=== PATIENT | male | born 1955 | race Caucasian/White ===

== ENCOUNTER 2016-11-28 10:06 | Inpatient (IN) | payer OTHER ==
[~2016-11-28] VITALS: Ht 177.8 cm; Wt 111.6 kg
--- NOTE | ~2016-11-28 | CON ---
[place], [place] REPORT OF CONSULTATION NAME: PAIGE SANDRA [facility] #: [id number] UNIT #: [id number] ROOM: 424 DOCTOR: ADOLFO LEON MD,MARIAMA BIRTHDATE: [birth year] DOS: 11/29/2016 REASON FOR CONSULTATION: Assess the patient for the lung mass with ongoing acute respiratory symptoms. HISTORY OF PRESENT ILLNESS: This is a 61-year-old white male who has been well known to me. The patient has been recently hospitalized in October 2016, treated for acute pneumonia with exacerbation of COPD. The patient discharged home and followed up in the office because of the suspected pneumonia/mass or atelectasis of the right middle lobe. The patient underwent CT scan of the chest that confirmed the presence of a right hilar mass 4.2 x 3.2 cm with subsegmental area of atelectasis and other 7 mm nodule. The patient has been scheduled the outpatient bronchoscopy which was planned to be done this morning. He has been noted with significant weakness. The patient went to work. He was sent to the Emergency Room for further assessment. He does have symptoms of coughing intermittently with symptoms of shortness breath. There were no symptoms of chest pain. The patient has been assessed in the Emergency Room and was hospitalized for the acute exacerbation of COPD. The patient denies any symptoms of hemoptysis. He does complain of some pain, which was described in the right side of the chest at times. The pain was described mild mostly. He was also described symptoms of palpitations. REVIEW OF SYSTEMS: CONSTITUTIONAL: Fatigue and tiredness noted without symptoms of fever or chills. EYES: Denies burning, redness, or tenderness. EARS, NOSE, THROAT SYMPTOMS: No sore throat, hoarseness, or otalgia. Postnasal drainage. CARDIOVASCULAR: Denies anginal pain noted palpitations intermittently. Denies symptoms of syncopal episodes. GASTROINTESTINAL SYMPTOMS: Denies nausea, vomiting, diarrhea, abdominal pain, hematemesis, melena, or hematochezia. GENITOURINARY SYMPTOMS: Denies dysuria, suprapubic pain, or hematuria. MUSCULOSKELETAL: Denies any acute joint pain, redness, or tenderness. SKIN: No lesions or rashes. CENTRAL NERVOUS SYSTEM: Lightheadedness described with symptoms of fever or chills. Remaining systems were reviewed with the patient, they were noted all negative. PAST MEDICAL HISTORY: 1. History of centrilobular emphysema. 2. History of chronic hypoxic respiratory failure, 3 litre oxygen use. 3. Anxiety disorder. 4. Type 2 diabetes mellitus. 5. Diverticulosis. 6. Essential hypertension. 7. Superficial gardner on the face. 8. ____ myocardial infarction. 9. Obstructive sleep apnea disorder. 10. Right perihilar mass for this patient with subsegmental atelectasis in size [place], [place] REPORT OF CONSULTATION NAME: PAIGE SANDRA UNIT #: [id number] ROOM: 424 DOCTOR: ADOLFO LEON MD,MARIAMA BIRTHDATE: [birth year] of 4.2 x 3.2 cm, which was diagnosed on 11/06/2016. PAST SURGICAL HISTORY: 1. Abdominal aortic aneurysm. 2. Cardiac catheterization. 3. ____ cataract extraction with lens implantation. 4. Fiberoptic bronchoscopy in 2009. 5. T and A. 6. Partial colon resection for diverticulosis management. SOCIAL HISTORY: The patient lives at home, works in the [employer] for many years. Smoking was noted since teenager 2 packs of cigarettes per day until 2012. Denies history of alcohol or any illicit drug use. FAMILY HISTORY: The patient has been noticed history of coronary artery disease and lung cancer in the father and history of lung cancer, was also known in the mother. MEDICATIONS: Current administered medications for the patient were noted as use of Lovenox for DVT prophylaxis, Levaquin, Zosyn, vancomycin, Restoril and other p.r.n. medications administration. DRUG ALLERGIES: Noted for allergy to VICODIN. PHYSICAL EXAMINATION: GENERAL: This is a 61-year-old white male who has been currently noted awake and alert without any acute distress. VITAL SIGNS: Height for this patient was noted as 5 feet 11 inches. The weight was noted as 246 pounds. The BMI 35.3. Vital signs for the patient, which has been recorded showed the temperature noted normal, respiratory rate 20-24, heart rate of 96-104, blood pressure 122/70-110/56. Intake is ____. Pulse ox saturation on 3 liters cannula. The patient noted 91% saturation. Room air on admission was 88% saturation. HEENT: Moderate obesity. Head was atraumatic. Eyes nonicterus. Oral mucosa moist. Decreased posterior pharyngeal space. CARDIOVASCULAR: S1, S2 audible. LUNGS: For this patient was noted without any crackles. Breaths are noted mildly decreased bilaterally. Scattered wheezing. ABDOMEN: Soft with obesity. Bowel sounds present. EXTREMITIES: Shows no edema, clubbing or cyanosis. LABORATORY DATA: The patient's CBC for patient that were done yesterday in the Emergency Room, the patient's WBC count 14.4, hemoglobin 10, hematocrit 32.7, platelet count 449,000. BMP of patient's BUN and creatinine was normal. Calcium was noted normal as well. PT and PTT were noted as normal yesterday. CBC this morning, WBC count 12.8, hemoglobin 10.3, hematocrit 34.3, platelet count 540,000. BMP this morning, glucose 157, BUN and creatinine was normal. Calcium was normal. TSH decreased 0.187. [place], [place] REPORT OF CONSULTATION NAME: PAIGE SANDRA UNIT #: [id number] ROOM: [facility] DOCTOR: KALEIGH WALL MDM BIRTHDATE: [birth year] IMAGING DATA: Chest x-ray of the patient 1 view, the patient that was done for the patient on 04/28/2016 was reviewed, shows persistent mass lesion for this patient with area of atelectasis in the right lower lobe. IMPRESSION: 1. The patient who has been currently admitted to the hospital with findings consistent with chronic hypoxic respiratory failure with possibly postobstructive pneumonia suspected malignancy, right lower lobe. 2. History of obstructive sleep apnea disorder, chronic obesity. 3. Family history of lung cancer was noted in both parents who from complications of lung cancer. 4. History of coronary artery disease and other medical illnesses. PLAN OF TREATMENT: At this time, the patient has been getting three different antibiotics, which would get coverage for health care associated infection, gram-positive, gram-negative organism. The pneumonia would be considered mostly postobstructive if it is rather than any aspiration pneumonia. Bronchoscopy was planned to be done this morning, patient was noted n.p.o. past midnight for the procedure was planned to be done this morning. Continue bronchodilators resume his home medications as well accordingly. Ordered the supportive therapy, plan of management. Usual care. Others as supportive treatment, plan of care as in progress. MARIAMA MATA MD CM:CONSTR:REPORT OF CONSULTATION 1429 11/29/16 2316 interface
--- NOTE | ~2016-11-28 | PROC NOTE ---
[place], [place] PROCEDURE NOTE NAME: PAIGE SANDRA [facility] #: [id number] UNIT #: [id number] ROOM: 424 DOCTOR: ADOLFO LEON MD,MARIAMA BIRTHDATE: [birth year] DOS: 11/29/2016 BRONCHOSCOPY NOTE PROCEDURE: Transbronchial and endobronchial biopsy for the patient of right lower lobe. PREOPERATIVE DIAGNOSIS: Right lower lobe mass. POSTOPERATIVE DIAGNOSES: Endobronchial mass lesion of the patient with almost complete occlusion of the right lower lobe bronchus. COMPLICATIONS: None. BLOOD LOSS: Couple of mL. PROCEDURE DESCRIPTION: Informed consent obtained for the patient. The patient brought to the OR and placed in supine position. Conscious sedation was administered by the Anesthesia Department. After achieving appropriate sedation, airway introduced into the mouth. Bronchoscope advanced into the airway into laryngeal area. Epiglottis and vocal cords were seen. Bronchoscope advanced to the vocal cords into the tracheal lumen. The tracheal lumen was noted with small purulent secretions, suctioned out to the herson level. The herson was seen. Left upper, lingular lower lobe bronchial openings were noted patent. The right main stem bronchus was noted filled with presence of mucopurulent material which were cleared out. Right upper and right middle lobe openings were identified. Compression of the right middle lobe bronchus was noted, but the bronchial openings were noted patent. Large endobronchial lesion noted in the right lower lobe bronchial openings. The biopsy was done for the patient of the endobronchial mass as well as 1 transbronchial biopsy was also taken. Procedure was well tolerated by the patient without any complications except bleeding was noted, only a couple of mL. 1:10,000 epinephrine mixed with saline was also sprayed on that area to prevent any bleeding. Hemostasis was achieved for this patient prior to withdrawal of the bronchoscope. Procedure well tolerated. Postoperative findings were discussed with the patient's family members in detail. MARIAMA MATA MD CM:PROCNOTE:PROCEDURE NOTE [id number] MARIAMA LEON MD
--- NOTE | ~2016-11-28 | PR ---
[place], [place] PROGRESS NOTE NAME: PAIGE SANDRA [facility] #: [id number] UNIT #: [id number] ROOM: 424 DOCTOR: ADOLFO LEON MD,MARIAMA BIRTHDATE: [birth year] DOS: 11/30/2016 PULMONARY FOLLOWUP NOTE SUBJECTIVE: The patient seen and examined on 11/30/2016. He has been noted comfortable with reduction of the cough at this time. Denies symptoms of chest pain. Shortness of breath has been improving. The patient denies symptoms of abdominal pain. The bronchoscopy done yesterday with biopsies of the right lower lobe lung mass was completed without any difficulty. OBJECTIVE: VITAL SIGNS: Normal temperature, respiratory rate 18, heart rate 71, blood pressure 132/86. Pulse oxygen saturation was noted as 97% on nasal cannula. HEENT: Examination shows no acute change. NECK: Supple. CARDIOVASCULAR: S1, S2 is audible. LUNGS: Examination of lungs for this patient was noted without any wheeze or crackles. ABDOMEN: Soft, nontender. IMPRESSION: The patient with acute tracheobronchitis of the patient was noted for the patient possibility of postobstructive pneumonia, suspected malignancy of the patient, metastasis to the liver for this patient endobronchial and transbronchial biopsy of the right lower lung mass with pending results. Cytology was described as benign, but suboptimal because of the large amount of wbc's noted. PLAN OF TREATMENT: Continuation of the current plan of therapy, other medical management. Monitor results of the biopsy. Continue current antibiotics. Changes in the antibiotics based on the cultures. Usual care, other supportive therapy, plan of management and care. MARIAMA MATA MD CM:PNTRANS [id number] MARIAMA LEON MD 11/30/16 1807 interface
[~2016-11-28 10:06] MED LIST: ASPIRIN81 M1 PO; BENADRYL50 MG PO; CIPRO500 MG PO; DOXYCYCLINE100 M3 PO; EPI EZ PEN1 MG/ML IM; FLAGYL500 MG PO; LASIX40 MG PO; LEVAQUIN500 M2 PO; LOPRESSOR50 M1 PO; METFORMIN500 MG PO; MOBIC7.5 MG PO; PREDNISONE10 MG PO; TRAMADOL HCL50 MG PO; ZESTRIL20 MG PO; ZITHROMAX Z PA250 MG PO; ZOCOR20 MG PO; ZOLOFT25 MG PO
[2016-11-28 10:17] VITALS: BP 112/55
[2016-11-28 10:59] LABS: HEMATOCRIT 32.7 % (42.0-52.0); MEAN CELL VOLUME 81.5 fl (80.0-94.0); MEAN CORPUSCULAR HGB 24.9 pg (27.0-31.0); MEAN CORPUSCULAR HGB CONC 30.6 g/dl (33.0-37.0); MEAN PLATELET VOLUME 8.7 fl (9.6-12.3); PLATELET COUNT AUTOMATED 449 10*3/uL (130-400); RED BLOOD COUNT 4.01 10*6/uL (4.50-5.90); RED CELL DISTRI WIDTH 15.9 % (0-14.5); WHITE BLOOD COUNT 14.4 10*3/uL (4.8-10.8)
[2016-11-28 11:16] LABS: MONOCYTE # 0.9 10*3/uL (0.1-1.0); NEUTROPHIL # 11.5 10*3/uL (2.3-7.9); NEUTROPHILS 80 % (47-73); TOTAL CELLS COUNTED 100 #CELLS
[2016-11-28 11:17] LABS: BUN 21 mg/dl (7-24); CARBON DIOXIDE 27 mmol/L (21-32); CHLORIDE 100 mmol/L (98-107); EST GLOM FILT AFRICAN AMERICAN > 60 ml/min; GLUCOSE 91 mg/dL (65-99); PLATELET SUFFICIENCY HIGH (NORMAL); POTASSIUM 3.7 mmol/L (3.5-5.1); SODIUM 136 mmol/L (136-145)
[2016-11-28 12:00] VITALS: BP 118/64
[2016-11-28 14:49] VITALS: BP 123/66
[2016-11-28] MEDS ORDERED: ASPIRIN BUFFER325 MG PO (16:06)
[2016-11-28] MEDS ORDERED: ASPIRIN325 M2 PO (16:06)
[2016-11-28 16:09] LABS: INTERNATIONAL NORM RATIO 1.1 (2.0-3.5); PROTHROMBIN TIME 11.3 SECONDS (9.0-12.4)
[2016-11-28 16:20] LABS: COL/EPI 141 SECONDS (86-157)
[2016-11-28 20:00] VITALS: BP 114/55
[2016-11-29] VITALS (9 sets, daily range): BP systolic 110–123; BP diastolic 55–76
[2016-11-29 06:55] LABS: BASO % 0.2 % (0.0-1.0); EOS % 0.1 % (1.0-4.0); HEMATOCRIT 34.3 % (42.0-52.0); HEMOGLOBIN 10.3 g/dl (14.0-18.0); IG # 0.2 10*3/uL (0.0-0.1); LYMPH # 1.6 10*3/uL (1.3-4.4); LYMPH % 12.3 % (27.0-41.0); MEAN CELL VOLUME 81.7 fl (80.0-94.0); MEAN CORPUSCULAR HGB 24.5 pg (27.0-31.0); MEAN PLATELET VOLUME 9.2 fl (9.6-12.3); MONO % 7.9 % (3.0-9.0); NEUT % 78.2 % (47.0-73.0); PLATELET COUNT AUTOMATED 540 10*3/uL (130-400); RED CELL DISTRI WIDTH 15.9 % (0-14.5); WHITE BLOOD COUNT 12.8 10*3/uL (4.8-10.8)
[2016-11-29 07:11] LABS: HEMOGLOBIN A1c 6.4 % (4.8-5.6)
[2016-11-29 07:19] LABS: PROTHROMBIN TIME 10.7 SECONDS (9.0-12.4)
[2016-11-29 07:30] LABS: BUN 17 mg/dl (7-24); CARBON DIOXIDE 25 mmol/L (21-32); CHLORIDE 105 mmol/L (98-107); CHOLESTEROL 89 mg/dL (<200); EST GLOM FILT AFRICAN AMERICAN > 60 ml/min; FREE T4 1.56 ng/dl (0.76-1.46); GLUCOSE 157 mg/dL (65-99); HDL CHOLESTEROL 50 mg/dl (40-60); LDL CHOLESTEROL 25 mg/dL (9-159); MAGNESIUM 2.2 mg/dL (1.5-2.1); POTASSIUM 3.8 mmol/L (3.5-5.1); SODIUM 140 mmol/L (136-145); THYROID STIM HORMONE (HS) 0.187 uIU/ml (0.358-4.75); TRIGLYCERIDES 71 mg/dl (<150); VLDL CHOLESTEROL 14 mg/dL (6-40)
[2016-11-29 08:33] LABS: FOLIC ACID 8.6 ng/mL (>5.38)
[2016-11-30] VITALS: BP 120/70
[2016-11-30 06:53] LABS: BASO # 0.1 10*3/uL (0.0-0.1); BASO % 0.5 % (0.0-1.0); EOS # 0.1 10*3/uL (0.0-0.4); EOS % 0.5 % (1.0-4.0); HEMATOCRIT 31.9 % (42.0-52.0); HEMOGLOBIN 9.5 g/dl (14.0-18.0); IG # 0.1 10*3/uL (0.0-0.1); LYMPH # 2.5 10*3/uL (1.3-4.4); LYMPH % 22.5 % (27.0-41.0); MEAN CELL VOLUME 83.7 fl (80.0-94.0); MEAN CORPUSCULAR HGB 24.9 pg (27.0-31.0); MEAN CORPUSCULAR HGB CONC 29.8 g/dl (33.0-37.0); MEAN PLATELET VOLUME 9.2 fl (9.6-12.3); MONO # 1.2 10*3/uL (0.1-1.0); MONO % 11.1 % (3.0-9.0); NEUT % 64.1 % (47.0-73.0); PLATELET COUNT AUTOMATED 443 10*3/uL (130-400); RED BLOOD COUNT 3.81 10*6/uL (4.50-5.90); WHITE BLOOD COUNT 10.9 10*3/uL (4.8-10.8)
[2016-11-30 07:29] LABS: BUN 16 mg/dl (7-24); CARBON DIOXIDE 28 mmol/L (21-32); CHLORIDE 108 mmol/L (98-107); EST GLOM FILT AFRICAN AMERICAN > 60 ml/min; GLUCOSE 102 mg/dL (65-99); POTASSIUM 4.3 mmol/L (3.5-5.1); SODIUM 144 mmol/L (136-145)
[2016-11-30 08:00] VITALS: BP 132/86
[2016-11-30 12:00] VITALS: BP 133/77
[2016-11-30] MEDS ORDERED: LEVAQUIN750 M1 PO (12:47)
[2016-11-30] MEDS ORDERED: OXYGEN NAS (12:47)
[2016-11-30 17:06] LABS: ACID FAST SPEC PROCESSING Concentration (.)
[2017-01-07] MEDS ORDERED: TORADOL60 MG/2 ML PO (10:59)
== END 2016-11-30 14:26 | disposition home or self-care (01) | DRG 853 ==
LOC: ED 10:06 → EDHOLD 12:40 → 4E 12:40
PROVIDERS: Emergency Medicine; Internal Medicine; Internal Medicine Critical Care Medicine
PROC: 0BBF8ZX Excision of Right Lower Lung Lobe, Via Natural or Artificial Opening Endoscopic, Diagnostic (ICD-10-PCS; principal; 2016-11-29)
DX: A41.9 Sepsis, unspecified organism (principal); J96.21 Acute and chronic respiratory failure with hypoxia; J18.1 Lobar pneumonia, unspecified organism; J44.1 Chronic obstructive pulmonary disease with (acute) exacerbation; J44.0 Chronic obstructive pulmonary disease with (acute) lower respiratory infection; I10 Essential (primary) hypertension; R65.20 Severe sepsis without septic shock; F41.9 Anxiety disorder, unspecified; E78.5 Hyperlipidemia, unspecified; J20.9 Acute bronchitis, unspecified; I25.10 Atherosclerotic heart disease of native coronary artery without angina pectoris; D47.3 Essential (hemorrhagic) thrombocythemia; E11.65 Type 2 diabetes mellitus with hyperglycemia; E66.9 Obesity, unspecified; Z68.35 Body mass index [BMI] 35.0-35.9, adult; Z87.891 Personal history of nicotine dependence; I25.2 Old myocardial infarction; Z90.49 Acquired absence of other specified parts of digestive tract; Z93.3 Colostomy status; Z98.42 Cataract extraction status, left eye; Z98.41 Cataract extraction status, right eye; Z98.890 Other specified postprocedural states; Z79.82 Long term (current) use of aspirin; Z79.899 Other long term (current) drug therapy; Z88.8 Allergy status to other drugs, medicaments and biological substances; Z82.49 Family history of ischemic heart disease and other diseases of the circulatory system; Z80.1 Family history of malignant neoplasm of trachea, bronchus and lung; Z83.79 Family history of other diseases of the digestive system

== ENCOUNTER → 2016-12-06 | Day surgery (SDC) | payer OTHER ==
[~2016-12-06] VITALS: Ht 177.8 cm; Wt 108.9 kg
[~2016-12-06] MED LIST changes: +ASPIRIN BUFFER325 MG PO; +ASPIRIN325 M2 PO; +LEVAQUIN750 M1 PO; +OXYGEN NAS; +TORADOL60 MG/2 ML PO
--- NOTE | ~2016-12-06 | PROC NOTE ---
[place], [place] PROCEDURE NOTE NAME: PAIGE SANDRA [facility] #: [id number] UNIT #: [id number] ROOM: DOCTOR: ADOLFO LEON MD,MARIAMA BIRTHDATE: [birth year] DOS: 12/06/2016 PROCEDURE: Fiberoptic bronchoscopy with endobronchial biopsy. PREOPERATIVE DIAGNOSIS: The patient with a mass lesion in the right lower lobe, requiring the biopsy since the previous biopsy was noted inconclusive for the diagnosis of malignancy. PROCEDURE DESCRIPTION: Informed consent obtained for the patient. The patient brought to the OR and placed in supine position. Conscious sedation administered by the Anesthesia Department. After achieving proper sedation, airway introduced into the mouth. Bronchoscope advanced into the airway into laryngeal area. Epiglottis and vocal cords were seen. Bronchoscope advanced to the vocal cord and tracheal lumen. Tracheal lumen was noted without any significant secretions. Camille was noted. The left upper, lingular lower lobe bronchi were all noted patent. Right upper, right middle lobe bronchial openings were noted patent as well. Large necrotic endobronchial lesion present in the left lower lobe endobronchial tree with resolution of previously noted purulent secretions. Several endobronchial biopsies were done for this patient of the right lower lung mass for the patient causing complete occlusion of the right lower lobe bronchus. The bleeding, which was present for the patient was controlled with use of 1:10,000 epinephrine, a total of 20 mL was used. The procedure was tolerated without any complications. Postoperative findings were discussed with the patient's in detail in the recovery room. MARIAMA MATA MD CM:PROCNOTE:PROCEDURE NOTE [id number] [id number] MARIAMA LEON MD
[2016-12-06 08:40] VITALS: BP 101/45
[2016-12-06 09:45] VITALS: BP 92/40
[2016-12-06 10:00] VITALS: BP 91/41
[2016-12-06 10:15] VITALS: BP 97/39
== END | disposition home or self-care (01) ==
LOC: SDC 12-05 09:30
DX: C34.31 Malignant neoplasm of lower lobe, right bronchus or lung (principal); I10 Essential (primary) hypertension; E11.9 Type 2 diabetes mellitus without complications; J45.909 Unspecified asthma, uncomplicated; Z87.891 Personal history of nicotine dependence; G47.33 Obstructive sleep apnea (adult) (pediatric); F41.9 Anxiety disorder, unspecified; E78.00 Pure hypercholesterolemia, unspecified; Z87.01 Personal history of pneumonia (recurrent)

== ENCOUNTER → 2017-04-03 | Outpatient (CLI) | payer OTHER ==
[2017-04-03] VITALS (8 sets, daily range): BP systolic 108–127; BP diastolic 62–76
[~2017-04-03] MED LIST changes: +HYDROXYZINE HCL25 M1 PO; +OMEPRAZOLE40 MG PO; +PAXIL10 MG PO; +PERCOCET 325 MG1 TA3 PO; +PERCOCET 325 MG1 TA5 PO; +Zofran4 MG PO
== END | disposition home or self-care (01) ==
LOC: TRNFUSION 01:08
DX: C34.31 Malignant neoplasm of lower lobe, right bronchus or lung (principal)

== ENCOUNTER → 2017-04-19 | Outpatient (CLI) | payer OTHER | END | disposition home or self-care (01) | LOC: RAD 14:05 | DX: M76.891 Other specified enthesopathies of right lower limb, excluding foot (principal) ==

== ENCOUNTER → 2017-04-25 | Outpatient (CLI) | payer OTHER ==
[~2017-04-25] MED LIST changes: +MARINOL5 MG PO
[2017-04-25 07:55] VITALS: BP 100/56
[2017-04-25 08:55] VITALS: BP 95/49
[2017-04-25 09:10] VITALS: BP 95/50
[2017-04-25 09:43] VITALS: BP 95/49
[2017-04-25 11:00] VITALS: BP 107/53
[2017-04-25 11:30] VITALS: BP 94/50
== END | disposition home or self-care (01) ==
LOC: TRNFUSION 00:41
DX: C34.31 Malignant neoplasm of lower lobe, right bronchus or lung (principal); D63.0 Anemia in neoplastic disease

== ENCOUNTER 2017-04-30 13:04 | Emergency (ER) | payer OTHER ==
[~2017-04-30] VITALS: Ht 177.8 cm; Wt 99.3 kg
[2017-04-30] VITALS (9 sets, daily range): BP systolic 90–128; BP diastolic 48–66
[2017-04-30 14:23] LABS: HEMATOCRIT 20.2 % (42.0-52.0); HEMOGLOBIN 6.1 g/dl (14.0-18.0); MEAN CELL VOLUME 92.2 fl (80.0-94.0); MEAN CORPUSCULAR HGB 27.9 pg (27.0-31.0); MEAN CORPUSCULAR HGB CONC 30.2 g/dl (33.0-37.0); RED BLOOD COUNT 2.19 10*6/uL (4.50-5.90); RED CELL DISTRI WIDTH 18.1 % (0-14.5)
[2017-04-30 14:34] LABS: ALBUMIN 1.5 gm/dl (3.1-4.5); ALKALINE PHOSPHATASE 279 U/L (45-117); BILIRUBIN, TOTAL 0.7 mg/dl (0.2-1.0); BUN 54 mg/dl (7-24); CARBON DIOXIDE 21 mmol/L (21-32); CHLORIDE 105 mmol/L (98-107); EST GLOM FILT AFRICAN AMERICAN 56 ml/min; GLUCOSE 77 mg/dL (65-99); POTASSIUM 4.1 mmol/L (3.5-5.1); SGOT/AST 36 IU/L (3-35); SGPT/ALT 20 U/L (12-78); SODIUM 141 mmol/L (136-145); TOTAL PROTEIN 6.3 gm/dL (6.4-8.2)
[2017-04-30 14:36] LABS: TROPONIN I < 0.015 ng/ml (<0.045)
[2017-04-30 15:03] LABS: BASOPHIL # 0.1 10*3/uL (0-0.1); BASOPHILS 1 % (0-1); METAMYELOCYTES 1 % (0-0); MONOCYTE # 0.4 10*3/uL (0.1-1.0); NEUTROPHIL # 3.5 10*3/uL (2.3-7.9); NEUTROPHILS 70 % (47-73); TOTAL CELLS COUNTED 100 #CELLS
[2017-04-30 15:05] LABS: TOXIC GRANULATION SLIGHT
[2017-04-30 15:06] LABS: PLATELET SUFFICIENCY LOW (NORMAL); POLYCHROMASIA SLIGHT
[2017-04-30 15:16] LABS: PLATELET COUNT AUTOMATED 6 10*3/uL (130-400)
[2017-04-30 16:14] LABS: LA>2 REFLEX 2 HR DRAW NOW
[2017-04-30 16:42] LABS: LA>2 RFLX FOLLOW UP AT 2 HRS 5.3 mmol/L (0.4-2.0)
[2017-04-30 18:33] LABS: LA>2 REFLEX 4 HR DRAW NOW
== END 2017-04-30 17:22 | disposition short-term general hospital (02) ==
LOC: ED 13:04 → EDHOLD 15:19 → ICCU 15:30 → ED 17:22
PROVIDERS: Registered Nurse
DX: A41.9 Sepsis, unspecified organism (principal); J18.1 Lobar pneumonia, unspecified organism; C34.90 Malignant neoplasm of unspecified part of unspecified bronchus or lung; E86.0 Dehydration; D69.6 Thrombocytopenia, unspecified; D64.89 Other specified anemias; Z79.82 Long term (current) use of aspirin; Z79.899 Other long term (current) drug therapy